=== PATIENT | female | born 1935 | race Caucasian/White ===

== ENCOUNTER 2021-11-10 13:21 | Inpatient (IN) ==
--- NOTE | 2021-11-10 13:54 | XRay Report ---
CLINICAL INFORMATION: Dyspnea COMPARISON: 08/31/2018 TECHNIQUE: PA and Lateral views FINDINGS: Moderate cardiomegaly has increased. Mediastinum and peripheral pulmonary vessels are normal. Moderate patchy infiltrates have developed in the right mid and lower lung with smaller patchy infiltrate in the left midlung. No effusions. IMPRESSION: Moderate patchy infiltrates in the right mid and lower lung. Small patchy infiltrate left midlung. Moderate cardiomegaly Interpreted and Authenticated by: Yunior Charles 11/10/21
[2021-11-10 14:01] LABS: POC Blood Urea Nitrogen 41 mg/dL (6-20); POC CO2 27 mmol/L (22-30); POC Calcium, Ionized 1.14 mmEq/L (1.16-1.32); POC Chloride 98 mEq/L (96-108); POC Creatinine 2.1 mg/dL (0.6-1.2); POC Glucose, Random 182 mg/dL (70-105); POC Hematocrit 36 % (36-48); POC Potassium 4.4 mEql/L (3.3-5.1); POC Sodium 135 mEq/L (133-145)
[2021-11-10 14:26] LABS: Basophils # (Auto) 0.02 K/mcL (0.00-0.30); Basophils % (Auto) 0.2 % (0.0-2.0); Eosinophils % (Auto) 2.2 % (0.0-7.0); Hematocrit 35.8 % (34.1-44.9); Hemoglobin 11.6 g/dL (11.2-15.7); Lymphocytes % (Auto) 8.8 % (15.5-49.0); Mean Cell Volume 91.6 fL (80.0-100.0); Mean Corpuscular HGB Conc 32.4 g/dL (31.0-36.0); Mean Platelet Volume 9.2 fL (7.4-10.4); Monocytes % (Auto) 8.8 % (1.0-12.0); Platelet Count 387 K/mcL (140-440); RBC 3.91 M/mcL (3.59-5.38); Red Cell Distribution Width 12.5 % (11.5-14.5); WBC 9.1 K/mcL (4.5-11.0)
--- NOTE | 2021-11-10 16:15 | Emergency Department Note ---
HPI General Chief complaint: Weakness Stated complaint: shortness of breath, weakness, anxious Time Seen by Provider: 11/10/21 13:26 Source: family Mode of arrival: ambulatory Limitations: no limitations History of Present Illness HPI Narrative: This is an 86-year-old female patient with history of CKD stage IV, atrial fibrillation on chronic Eliquis therapies, congestive heart failure, type 2 diabetes, hypothyroidism, and COPD with nocturnal oxygen dependence who presents with weakness and hypoxia. The patient is a [place]ian-speaking only elderly female who is here visiting her daughter from [place]. She has been in the area for about 1 month. She was previously on prednisone for a acute gout flare, and developed fairly severe diarrhea that is now resolving. Her appetite was good up until her prednisone taper was stopped. Now she endorses poor oral intake and generalized weakness. She does not feel motivated to get up and walk, and gets short of breath with limited ambulation. She denies chest pain. Has no history of coronary artery disease. Her congestive heart failure is presumably from untreated atrial fibrillation. She denies chest pain. She does endorse a cough. Denies fevers, chills, or sweats. Denies abdominal pain. Denies dysuria or hematuria, but does note that her urine smelled a little foul the other day. EKG shows atrial fibrillation with a rate of 100 bpm. There are no concerning ST deviation to suggest ischemia. She does have nonspecific ST changes in lead III with T wave inversions. QTC is 418 ms. Related Data Home Medications Medication Instructions Recorded Confirmed apixaban 2.5 mg tablet (Eliquis) 2.5 mg PO BID 11/10/21 11/10/21 atorvastatin 40 mg tablet 40 mg PO HS 11/10/21 11/10/21 carvedilol 25 mg tablet 25 mg PO BID 11/10/21 11/10/21 fluticasone furoate 200 1 inh PO QDAY 11/10/21 11/10/21 mcg-vilanterol 25 mcg/dose inhalation powder (Breo Ellipta) furosemide 40 mg tablet 40 mg PO BID 11/10/21 11/10/21 hydroxyzine HCl 25 mg tablet 0 mg PO 11/10/21 11/10/21 latanoprost 0.005 % eye drops 1 drp OPHTHALMIC (EYE) QDAY 11/10/21 11/10/21 levothyroxine 50 mcg tablet 50 mcg PO QDAY 11/10/21 11/10/21 omeprazole 20 mg capsule,delayed 20 mg PO QDAY 11/10/21 11/10/21 release spironolactone 25 mg tablet 25 mg PO 11/10/21 11/10/21 umeclidinium 62.5 mcg/actuation 1 inh PO QDAY 11/10/21 11/10/21 blister powder for inhalation (Incruse Ellipta) Allergies Allergy/AdvReac Type Severity Reaction Status Date / Time salmeterol Allergy Unknown Unknown Verified 11/10/21 13:26 Review of Systems ROS ROS Narrative: Narrative: All systems ED: reviewed and negative except as stated. PFSH Narrative Patient History Narrative: Narrative: Medical/Surgical/Family History All Active Problems Weakness (Acute) Social History Smoking Status: Never smoker Exam Narrative Narrative: General: AOx3, NAD, nontoxic appearing. Pleasant and conversant. HEENT: PERRL, EOMI, normocephalic. Moist mucous membranes. Normal facies and normal dentition. Chest: Symmetric, no pain to palpation Respiratory: Crackles in the bilateral lung bases. No respiratory distress. Unlabored breathing. O2 saturations dropped to 88% on room air with minimal activity. Heart: Irregular rate and rhythm, no murmurs/clicks/rubs. Abdomen: Non-tender, Non distended, normal bowel tones. No organomegaly. Extremities: Warm and well perfused. No edema. DP 2+ bilaterally. No venous stasis. Neuro: No focal deficits. Cranial nerves II-XII grossly normal. Skin: Warm dry, no rashes or lesions, no cyanosis. Psych: Normal mood and affect Heme/Lymph: No abnormal bruising General Limitations: no limitations Course Course Course Narrative: 86-year-old female presents with hypoxia and weakness. Reevaluation(s) Reevaluation #1: Basic labs chest x-ray, TSH, UA EKG and troponin Reevaluation #2: Patient's chest x-ray shows bilateral patchy infiltrates most notably in the right lung. Patient without leukocytosis or left shift. CMP with a creatinine of 2.1 (baseline is 1.8 from labs reviewed from her health care center). Reevaluation #3: Patient was ambulated on room air and saturations dropped to the mid 80s. Vital Signs Vital signs: Vital Signs Temperature 97.3 F 11/10/21 13:22 Pulse Rate 73 11/10/21 13:22 Respiratory Rate 20 11/10/21 13:22 Blood Pressure 118/69 11/10/21 13:22 Pulse Oximetry (%) 98 11/10/21 13:22 Temperature 97.3 F 11/10/21 13:22 Pulse Rate 91 H 11/10/21 19:46 Respiratory Rate 17 11/10/21 19:46 Blood Pressure 101/72 11/10/21 19:46 Pulse Oximetry (%) 97 11/10/21 19:46 MDM MDM Narrative Medical decision making narrative: Community-acquired pneumonia Hypoxia Patient was given IV ceftriaxone and azithromycin. Patient has new oxygen requirements with a pneumonia severity index score of 114, class IV, and meets criteria for inpatient admission. Patient is open to being admitted. They would like to stay within the area. I reached out to Dr. Bowers for admission and I am awaiting his call if there is a bed available. Patient was signed out to Dr. Bowers for admission. Lab Data Result diagrams: 11/10/21 13:53 Labs: Lab Results 11/10/21 11/10/21 11/10/21 Range/Units 13:53 13:53 13:53 WBC 9.1 (4.5-11.0) K/mcL RBC 3.91 (3.59-5.38) M/mcL Hgb 11.6 (11.2-15.7) g/dL Hct 35.8 (34.1-44.9) % POC Hct 36 (36-48) % MCV 91.6 (80.0-100.0) fL MCH 29.7 (26.0-34.0) pg MCHC 32.4 (31.0-36.0) g/dL RDW 12.5 (11.5-14.5) % Plt Count 387 (140-440) K/mcL MPV 9.2 (7.4-10.4) fL Neut % (Auto) 80.0 H (38.0-78.0) % Lymph % (Auto) 8.8 L (15.5-49.0) % [place] % (Auto) 8.8 (1.0-12.0) % Eos % (Auto) 2.2 (0.0-7.0) % Baso % (Auto) 0.2 (0.0-2.0) % Lymph # (Auto) 0.80 L (1.50-4.80) K/mcL [place] # (Auto) 0.80 (0.10-0.90) K/mcL Eos # (Auto) 0.20 (0.00-0.70) K/mcL Baso # (Auto) 0.02 (0.00-0.30) K/mcL Absolute Neutrophils 7.29 (1.80-8.00) K/mcL POC Sodium 135 (133-145) mEq/L POC Potassium 4.4 (3.3-5.1) mEql/L POC Chloride 98 (96-108) mEq/L POC Total CO2 27 (22-30) mmol/L POC BUN 41 H (6-20) mg/dL POC Creatinine 2.1 H (0.6-1.2) mg/dL POC Glucose 182 H (70-105) mg/dL POC WB Ioniz Calcium 1.14 L (1.16-1.32) mmEq/L NT-Pro-B Natriuret Pep 4689.0 H (<450.0) pg/mL Urine Color Urine Appearance (Clear) Urine pH (5.0-9.0) Ur Specific [place] (1.000-1.035) Urine Protein (Negative) mg/dL Urine Glucose (UA) (Negative) mg/dL Urine Ketones (Negative) mg/dL Urine Occult Blood (Negative) mg/dL Urine Nitrate (Negative) Urine Bilirubin (Negative) mg/dL Urine Urobilinogen mg/dL Ur Leukocyte Esterase (Negative) /uL Urine RBC (0-3) /hpf Urine WBC (0-4) /hpf Ur Squamous Epith Cells (0-4) /hpf Ur Transition Epith Cell (0-2) /hpf Urine Bacteria (0) /hpf Hyaline Casts (0-2) /lph Urine Mucus (None) /hpf Ur Culture Indicated? POC Troponin I 0.01 L (0.02-0.08) ng/mL 11/10/21 Range/Units 15:55 WBC (4.5-11.0) K/mcL RBC (3.59-5.38) M/mcL Hgb (11.2-15.7) g/dL Hct (34.1-44.9) % POC Hct (36-48) % MCV (80.0-100.0) fL MCH (26.0-34.0) pg MCHC (31.0-36.0) g/dL RDW (11.5-14.5) % Plt Count (140-440) K/mcL MPV (7.4-10.4) fL Neut % (Auto) (38.0-78.0) % Lymph % (Auto) (15.5-49.0) % [place] % (Auto) (1.0-12.0) % Eos % (Auto) (0.0-7.0) % Baso % (Auto) (0.0-2.0) % Lymph # (Auto) (1.50-4.80) K/mcL [place] # (Auto) (0.10-0.90) K/mcL Eos # (Auto) (0.00-0.70) K/mcL Baso # (Auto) (0.00-0.30) K/mcL Absolute Neutrophils (1.80-8.00) K/mcL POC Sodium (133-145) mEq/L POC Potassium (3.3-5.1) mEql/L POC Chloride (96-108) mEq/L POC Total CO2 (22-30) mmol/L POC BUN (6-20) mg/dL POC Creatinine (0.6-1.2) mg/dL POC Glucose (70-105) mg/dL POC WB Ioniz Calcium (1.16-1.32) mmEq/L NT-Pro-B Natriuret Pep (<450.0) pg/mL Urine Color Yellow Urine Appearance Hazy A (Clear) Urine pH 5.0 (5.0-9.0) Ur Specific [place] 1.009 (1.000-1.035) Urine Protein Negative (Negative) mg/dL Urine Glucose (UA) Negative (Negative) mg/dL Urine Ketones Negative (Negative) mg/dL Urine Occult Blood Negative (Negative) mg/dL Urine Nitrate Pos A (Negative) Urine Bilirubin Negative (Negative) mg/dL Urine Urobilinogen Negative mg/dL Ur Leukocyte Esterase Negative (Negative) /uL Urine RBC < 1 (0-3) /hpf Urine WBC 5 H (0-4) /hpf Ur Squamous Epith Cells < 1 (0-4) /hpf Ur Transition Epith Cell < 1 (0-2) /hpf Urine Bacteria Few A (0) /hpf Hyaline Casts 5 H (0-2) /lph Urine Mucus Few A (None) /hpf Ur Culture Indicated? Yes POC Troponin I (0.02-0.08) ng/mL ED POC Tests ED POC Tests: NICOLE - Influenza A Negative NICOLE - Influenza B Negative NICOLE - SARS Antigen Negative Discharge Plan Patient/Caregiver Discharge Instructions Pt seen by EQUIPMENT SERVICE ASSOCIATE/PA only: Yes Patient Disposition: Xfer As Inpt ([facility]) Condition: Fair Follow up with: No,PCP [Primary Care Provider] - Prescriptions: No Action Eliquis 2.5 mg tablet 2.5 mg PO BID 0RF hydroxyzine HCl 25 mg tablet 0 mg PO 0RF carvedilol 25 mg tablet 25 mg PO BID 0RF spironolactone 25 mg tablet 25 mg PO 0RF levothyroxine 50 mcg tablet 50 mcg PO QDAY 0RF atorvastatin 40 mg tablet 40 mg PO HS 0RF Incruse Ellipta 62.5 mcg/actuation blister with device 1 inh PO QDAY 0RF latanoprost 0.005 % drops 1 drp ophthalmic (eye) QDAY 0RF furosemide 40 mg tablet 40 mg PO BID 0RF Breo Ellipta 200-25 mcg/dose blister with device 1 inh PO QDAY 0RF omeprazole 20 mg capsule,delayed release(DR/EC) 20 mg PO QDAY 0RF
[2021-11-10] MEDS ORDERED: AZITHROMYCIN 500 MG in DEXTROSE 5% IN WATER 250 ML IV ONE (16:48)
[2021-11-10] MEDS ORDERED: cefTRIAXone 1 GM VIAL IV ONE (16:48)
[2021-11-10 17:13] LABS: Appearance,Urine HAZY (Clear); Bacteria,Urine FEW /hpf (0); Bilirubin,Urine Negative (Negative); Color,Urine YELLOW; Culture Indicated,Urine Yes; Glucose,Urine (UA) Negative (Negative); Ketones,Urine Negative (Negative); Leukocyte Esterase,Urine Negative /uL (Negative); Mucus,Urine FEW /hpf; Nitrate,Urine POS (Negative); Protein,Urine Negative (Negative); Specific Gravity,Urine 1.009 (1.000-1.035); Urine Blood Negative (Negative); Urine Hyaline Cast 5 /lph (0-2); Urine RBC < 1 /hpf (0-3); Urine Squamous Epithelial Cell < 1 /hpf (0-4); Urine Transitional Epi Cells < 1 /hpf (0-2); Urine WBC 5 /hpf (0-4); Urobilinogen,Urine Negative
--- NOTE | 2021-11-10 19:47 | Internal Med History&Physical ---
HPI History of Present Illness Patient information: Note initiated : 11/10/21 at 7:40 pm Service Date, if different from initiated Date: [] Patient: Kathie Prince 86 y/o F admitted on for shortness of breath, weakness, anxious. Chief Complaint: [] History of present illness: Ms. Prince is a 86 year old female with a history of atrial fibrillation on Eliquis, chronic kidney disease stage IV, congestive heart failure, type 2 diabetes mellitus, hypothyroidism, COPD with nocturnal hypoxia who presented to the emergency department for shortness of breath and generalized weakness. The emergency department, the patient was felt to have a pneumonia based on bilateral infiltrates noted on chest x-ray. The patient had a new oxygen requirement of about 2 L/min. The patient did not have any leukocytosis or fevers, renal function panel shows a creatinine of 2.1. The patient's baseline renal function is chronic kidney disease stage IV. Patient was started on ceftriaxone and azithromycin. Hospital medicine was consulted for admission. Review of systems Constitutional: no fever, fatigue, or weight loss Eyes: no vision changes or pain Cardiovascular: no chest pain, no palpitations Respiratory: no cough or dyspnea Gastrointestinal: no abdominal pain, no nausea, vomiting, or diarrhea Genitourinary: no dysuria or difficulty voiding Musculoskeletal: no arthralgia or myalgia Integumentary: no skin lesion or wound Neurological: no focal weakness or numbness Psychiatric: no anxiety or depression Physical exam Head: Atraumatic, normal inspection. Eyes: normal appearance, no scleral icterus. Neck: full ROM Respiratory: no respiratory distress. Cardiovascular: normal rate and rhythm, S1, S2. GI/Abdominal: soft, nontender, no guarding. Extremities: full range of motion, nontender. Neurological: CN II-XII intact, intact motor, intact sensation. Psychiatric: normal mood. Skin: warm, normal color PFSH PFSH All Active Problems Weakness (Acute) MEDS/ALLERGIES Home Medications and Allergies Home Medications Medication Instructions Recorded Confirmed Type apixaban 2.5 mg tablet (Eliquis) 2.5 mg PO BID 11/10/21 11/10/21 History atorvastatin 40 mg tablet 40 mg PO HS 11/10/21 11/10/21 History carvedilol 25 mg tablet 25 mg PO BID 11/10/21 11/10/21 History fluticasone furoate 200 1 inh PO QDAY 11/10/21 11/10/21 History mcg-vilanterol 25 mcg/dose inhalation powder (Breo Ellipta) furosemide 40 mg tablet 40 mg PO BID 11/10/21 11/10/21 History hydroxyzine HCl 25 mg tablet 0 mg PO 11/10/21 11/10/21 History latanoprost 0.005 % eye drops 1 drp OPHTHALMIC (EYE) QDAY 11/10/21 11/10/21 History levothyroxine 50 mcg tablet 50 mcg PO QDAY 11/10/21 11/10/21 History omeprazole 20 mg capsule,delayed 20 mg PO QDAY 11/10/21 11/10/21 History release spironolactone 25 mg tablet 25 mg PO 11/10/21 11/10/21 History umeclidinium 62.5 mcg/actuation 1 inh PO QDAY 11/10/21 11/10/21 History blister powder for inhalation (Incruse Ellipta) Allergies Allergy/AdvReac Type Severity Reaction Status Date / Time salmeterol Allergy Unknown Unknown Verified 11/10/21 13:26 EXAM Constitutional Vitals: Temp Pulse Resp BP Pulse Ox 97.3 F 95 H 20 109/89 98 11/10/21 13:22 11/10/21 19:15 11/10/21 19:15 11/10/21 19:15 11/10/21 19:15 DATA Data Completed and Pending Labs: Labs from last 24 hours 11/10/21 11/10/21 11/10/21 15:55 13:53 13:53 WBC RBC Hgb Hct POC Hct MCV MCH MCHC RDW Plt Count MPV Neut % (Auto) Lymph % (Auto) [place] % (Auto) Eos % (Auto) Baso % (Auto) Lymph # (Auto) [place] # (Auto) Eos # (Auto) Baso # (Auto) Absolute Neutrophils POC Sodium POC Potassium POC Chloride POC Total CO2 POC BUN POC Creatinine POC Glucose POC WB Ioniz Calcium NT-Pro-B Natriuret Pep 4689.0 H TSH Pending Urine Color Yellow Urine Appearance Hazy A Urine pH 5.0 Ur Specific [place] 1.009 Urine Protein Negative Urine Glucose (UA) Negative Urine Ketones Negative Urine Occult Blood Negative Urine Nitrate Pos A Urine Bilirubin Negative Urine Urobilinogen Negative Ur Leukocyte Esterase Negative Urine RBC < 1 Urine WBC 5 H Ur Squamous Epith Cells < 1 Ur Transition Epith Cell < 1 Urine Bacteria Few A Hyaline Casts 5 H Urine Mucus Few A Ur Culture Indicated? Yes POC Troponin I 11/10/21 11/10/21 13:53 13:53 WBC 9.1 RBC 3.91 Hgb 11.6 Hct 35.8 POC Hct 36 MCV 91.6 MCH 29.7 MCHC 32.4 RDW 12.5 Plt Count 387 MPV 9.2 Neut % (Auto) 80.0 H Lymph % (Auto) 8.8 L [place] % (Auto) 8.8 Eos % (Auto) 2.2 Baso % (Auto) 0.2 Lymph # (Auto) 0.80 L [place] # (Auto) 0.80 Eos # (Auto) 0.20 Baso # (Auto) 0.02 Absolute Neutrophils 7.29 POC Sodium 135 POC Potassium 4.4 POC Chloride 98 POC Total CO2 27 POC BUN 41 H POC Creatinine 2.1 H POC Glucose 182 H POC WB Ioniz Calcium 1.14 L NT-Pro-B Natriuret Pep TSH Urine Color Urine Appearance Urine pH Ur Specific [place] Urine Protein Urine Glucose (UA) Urine Ketones Urine Occult Blood Urine Nitrate Urine Bilirubin Urine Urobilinogen Ur Leukocyte Esterase Urine RBC Urine WBC Ur Squamous Epith Cells Ur Transition Epith Cell Urine Bacteria Hyaline Casts Urine Mucus Ur Culture Indicated? POC Troponin I 0.01 L A/P Narrative A/P Narrative: Assessment: 86 year old female with a history of atrial fibrillation on Eliquis, chronic kidney disease stage IV, congestive heart failure, type 2 diabetes mellitus, hypothyroidism, COPD with nocturnal hypoxia who presented to the emergency department for shortness of breath and generalized weakness. In the emergency department, the patient had a new oxygen requirement of about 2 L/min, chest x-ray showed bilateral infiltrates. #Probable community-acquired pneumonia #Bilateral pulmonary infiltrates #Hypoxia, possibly chronic #Possible UTI #Type 2 diabetes mellitus #COPD w/ nocturnal hypoxia on 2 L/min #Chronic kidney disease stage IV #Congestive heart failure #Atrial fibrillation on low-dose Eliquis Plan -Ceftriaxone and azithromycin. -Oxygen supplementation. -Follow blood and urine cultures. -Procalcitonin. -CT chest without contrast. -Duonebs prn. -Correction Humalog SSI-low. -Home medication reconciliation, resume essential meds. -PT consult. -DVT prophylaxis: Heparin SQ -CODE STATUS: DNR/DNI -Disposition:Home when stable. Time Spent With Patient Time: Total time spent is greater than 50% in coordination of care (as documented) at patient's floor/unit and/or counseling patient:
[2021-11-10] MEDS ORDERED: ACETAMINOPHEN 325 MG TABLET PO PRN (21:29)
[2021-11-10] MEDS ORDERED: DEXTROSE 50% 50 ML VIAL IV PRN (21:29)
[2021-11-10] MEDS ORDERED: ONDANSETRON 4 MG/2 ML VIAL IV PRN (21:29)
[2021-11-10] MEDS ORDERED: IPRATROPIUM/ALBUTEROL 3 ML AMPUL.NEB NEB PRN (21:29)
[2021-11-10] MEDS ORDERED: DEXTROSE 31 GM ORAL.SUSP PO PRN (21:29)
[2021-11-10] MEDS ORDERED: SENNOSIDES 1 TABLET PO SCH (21:29)
[2021-11-10] MEDS: INSULIN LISPRO 1 UNIT/0.01 ML UNIT SQ SCH (22:01)
[2021-11-10] MEDS: 0.9 % SODIUM CHLORIDE 10 ML SYRINGE IV SCH (22:02)
[2021-11-10] MEDS: DOCUSATE SODIUM 100 MG CAPSULE PO SCH (22:14)
--- NOTE | 2021-11-11 04:39 | Cat Scan Report ---
CLINICAL INFORMATION: Dyspnea and infiltrates COMPARISON: Chest x-ray 11/10/2021 TECHNIQUE: 0.625 mm axial slices were obtained from the lung apices through the bases without intravenous contrast. 2.5 mm Sagittal, coronal and axial reformatted images were processed and reviewed at bone, lung and soft tissue windows. 7 mm axial MIP images were also reconstructed to optimize pulmonary nodule detection.The exam was performed using radiation dose optimization techniques including, but not limited to, automated exposure control, adjustment of the mA and/or kV according to patient size and use of iterative reconstruction technique. FINDINGS: Pulmonary parenchymal windows show complete atelectasis of the lateral segment of the right middle lobe and partial cicitration atelectasis in the distal lingula. Moderate, yet vague, patchy groundglass airspace disease with mosaic perfusion pattern is seen throughout both upper right middle and both lower lobes with prominence in the upper lobes. Marked tubular bronchiectasis in the superior segmental right lower lobe bronchi noted. A 6 mm well-circumscribed solid nodule in the supradiaphragmatic anterior basilar segment right lower lobe on image 80 is almost certainly a granuloma. There are no effusions Mediastinal windows show moderate cardiomegaly. There is heavy calcific plaque in the LAD and also scattered within the circumflex and right coronary arteries. The noncontrast thoracic aorta and pulmonary arteries are normal in diameter. 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 There is no adenopathy in the mediastinal, hilar or axillary regions. The esophagus is grossly normal. Bone windows show no significant osseous abnormality. Soft tissues of the chest wall normal. Images of the superior abdomen show scattered low-attenuation lesions within the spleen which are likely cysts or benign hemangiomas. IMPRESSION: 1. Small vague regions of groundglass airspace disease scattered throughout both upper, both lower and right middle lobes. This is nonspecific most likely representing fibrosis from prior infection. An acute process as infection or inflammation is also possible. Suggest follow-up plain radiographs 2. Marked tubular bronchiectasis in the superior segment right lower lobe. This would predispose to future infection. 3. Complete atelectasis lateral segment right middle lobe. Cicitration atelectasis distal lingula. 4. Aberrant right subclavian artery extending through the retroesophageal region. This is a congenital variant. 5. Moderate cardiomegaly with heavy calcific plaque in the LAD coronary artery Interpreted and Authenticated by: Yunior Charles 11/11/21
[2021-11-11] MEDS: 0.9 % SODIUM CHLORIDE 10 ML SYRINGE IV SCH ×2 (05:42→14:40)
[2021-11-11 06:26] LABS: Hematocrit 33.2 % (34.1-44.9); Hemoglobin 10.3 g/dL (11.2-15.7); Mean Cell Volume 92.5 fL (80.0-100.0); Platelet Count 378 K/mcL (140-440); RBC 3.59 M/mcL (3.59-5.38); Red Cell Distribution Width 12.4 % (11.5-14.5); WBC 8.5 K/mcL (4.5-11.0)
[2021-11-11 06:53] LABS: ALT/SGPT 8 U/L (<40); AST/SGOT 12 U/L (<32); Albumin 2.7 gm/dL (3.2-5.2); Albumin/Globulin Ratio 0.6 (1.0-2.3); Alkaline Phosphatase 102 U/L (39-117); Bilirubin,Direct < 0.2 mg/dL (0-0.3); Bilirubin,Total 0.3 mg/dL (0.1-1.0); Blood Urea Nitrogen 28 mg/dL (8-23); Calcium 8.9 mg/dL (8.6-10.4); Carbon Dioxide 25 mmol/L (22-30); Chloride 96 mmol/L (96-108); Globulin 4.2 gm/dL (2.2-3.7); Glomerular Filtration Rate 25; Glucose 94 mg/dL (70-105); Lactate Dehydrogenase 174 U/L (135-225); Triglycerides 135 mg/dL (<150); Uric Acid 10.2 mg/dL (2.5-8.0)
[2021-11-11] MEDS: INSULIN LISPRO 1 UNIT/0.01 ML UNIT SQ SCH ×3 (07:09→16:32)
[2021-11-11 08:29] LABS: Band Neutrophils % 1 % (0-10); Eosinophils % (Manual) 9 % (0-7); Hypochromasia FEW (None Seen); Lymphocytes % 15 % (15-49); Monocytes % (Manual) 8 % (1-12); Ovalocytes FEW (None Seen); Platelet Estimate NORMAL (Normal); RBC Morphology ABNORMAL (Normal); Segmented Neutrophils % 67 % (38-78)
[2021-11-11] MEDS: DOCUSATE SODIUM 100 MG CAPSULE PO SCH (08:40)
[2021-11-11] MEDS ORDERED: cefTRIAXone 1 GM VIAL IV SCH (09:00)
[2021-11-11] MEDS ORDERED: AZITHROMYCIN 500 MG in DEXTROSE 5% IN WATER 250 ML IV SCH (10:00)
[2021-11-11] MEDS ORDERED: CALCIUM CARBONATE 500 MG TAB.CHEW CHEWED PRN (11:30)
[2021-11-11] MEDS ORDERED: FUROSEMIDE 40 MG TABLET PO SCH (16:00)
[2021-11-11] MEDS ORDERED: cefTRIAXone 1 GM in DEXTROSE 5% IN WATER 50 ML IV SCH (17:00)
--- NOTE | 2021-11-11 17:08 | Discharge Summary ---
Discharge Provider Provider Patient information: Note initiated : 11/11/21 at 5:04 pm Service Date, if different from initiated Date: [] Patient: Kathie Prince 86 y/o F admitted on 11/10/21 for shortness of breath, weakness, anxious. Chief Complaint: [] Date of admission: 11/10/21 21:24 Discharge date: 11/11/21 Primary care physician: PCP No Consults: 11/10/21 Consult to Physician [CONS] Stat Comment: Consulting Provider: Gato Bowers Reason For Exam: Physician to Consult Discharge Meds Discharge Medications Home Medications apixaban 2.5 mg tablet (Eliquis) 2.5 mg PO BID 11/10/21 [History Confirmed 04/26 Last Taken Unknown] atorvastatin 40 mg tablet 40 mg PO HS 11/10/21 [History Confirmed 11/10/21 Last Taken Unknown] carvedilol 25 mg tablet 25 mg PO BID 11/10/21 [History Confirmed 11/10/21 Last T aken Unknown] fluticasone furoate 200 mcg-vilanterol 25 mcg/dose inhalation powder (Breo Ellipta) 1 inh PO QDAY 11/10/21 [History Confirmed 11/10/21 Last Taken Unknown] furosemide 40 mg tablet 40 mg PO BID 11/10/21 [History Confirmed 11/10/21 Last Taken Unknown] hydroxyzine HCl 25 mg tablet 0 mg PO 11/10/21 [History Confirmed 11/10/21 Last Taken Unknown] latanoprost 0.005 % eye drops 1 drp OPHTHALMIC (EYE) QDAY 11/10/21 [History Confirmed 11/10/21 Last Taken Unknown] levothyroxine 50 mcg tablet 50 mcg PO QDAY 11/10/21 [History Confirmed 11/10/21 Last Taken Unknown] omeprazole 20 mg capsule,delayed release 20 mg PO QDAY 11/10/21 [History Confirmed 11/10/21 Last Taken Unknown] spironolactone 25 mg tablet 25 mg PO 11/10/21 [History Confirmed 11/10/21 Last Taken Unknown] umeclidinium 62.5 mcg/actuation blister powder for inhalation (Incruse Ellipta) 1 inh PO QDAY 11/10/21 [History Confirmed 11/10/21 Last Taken Unknown] azithromycin 250 mg tablet 250 mg PO QDAY 3 Days #3 tab 11/11/21 [Rx Last Taken Unknown] cefuroxime axetil 250 mg tablet 250 mg PO BID 3 Days #6 tab 11/11/21 [Rx Last Taken Unknown] COURSE Hospital Course Hospital course: Ms. Prince is a 86 year old female with a history of atrial fibrillation on Eliquis, chronic kidney disease stage IV, congestive heart failure, type 2 diabetes mellitus, hypothyroidism, COPD with nocturnal hypoxia who presented to the emergency department for shortness of breath and generalized weakness. The emergency department, the patient was felt to have a pneumonia based on bilateral infiltrates noted on chest x-ray. The patient had a new oxygen requirement of about 2 L/min. The patient did not have any leukocytosis or fevers, renal function panel shows a creatinine of 2.1. The patient's baseline renal function is chronic kidney disease stage IV. Patient was started on ceftriaxone and azithromycin. Hospital medicine was consulted for admission. 11/11 Feels better, CT chest showed small vague regions of groundglass airspace disease scattered throughout both upper both lower and right middle lobes, possibly lung fibrosis secondary to recent infection versus acute infection or inflammation. Urine culture grew gram-negative bacilli. [place] PCR was negative. Discussed disposition with the patient, she wants to go home with family. Discharged home with family, complete 5 days of antibiotics for possible pneumonia as well as probable urinary tract infection. The patient already has oxygen at home, normally uses oxygen at nighttime. Encouraged the patient to continue to wear oxygen during the daytime and check her oxygen saturation. The patient is visiting family in the area, she is from [place]. She should follow-up with her PCP and possibly pulmonology when she gets back to [place]. Physical exam Head: Atraumatic, normal inspection. Eyes: normal appearance, no scleral icterus. Neck: full ROM Respiratory: no respiratory distress. Cardiovascular: normal rate and rhythm, S1, S2. GI/Abdominal: soft, nontender, no guarding. Extremities: full range of motion, nontender. Neurological: CN II-XII intact, intact motor, intact sensation. Psychiatric: normal mood. Skin: warm, normal color Discharge diagnosis: Community-acquired pneumonia Secondary discharge diagnosis: Acute cystitis Time Spent with Patient Time attestation: Total time spent providing and/or coordinating discharge services: EXAM Constitutional Vitals: Temp Pulse Resp BP Pulse Ox 98.8 F 95 H 20 98/60 94 11/11/21 16:20 11/11/21 16:20 11/11/21 16:20 11/11/21 16:53 11/11/21 16:20 Discharge Data Data Completed and Pending Labs on day of discharge: Labs from last 24 hours 11/11/21 11/11/21 11/10/21 05:27 05:27 20:00 WBC 8.5 RBC 3.59 Hgb 10.3 L Hct 33.2 L MCV 92.5 MCH 28.7 MCHC 31.0 RDW 12.4 Plt Count 378 MPV 9.0 Seg Neutrophils % 67 Band Neutrophils % 1 Lymphocytes % 15 Monocytes % (Manual) 8 Eosinophils % (Manual) 9 H Platelet Estimate Normal RBC Morphology Abnormal A Hypochromasia Few A Ovalocytes Few A Sodium 133 Potassium 4.0 Chloride 96 Carbon Dioxide 25 Anion Gap 12.0 BUN 28 H Creatinine 1.8 H GFR Calculation 25 Glucose 94 Uric Acid 10.2 H Calcium 8.9 Phosphorus 3.0 Magnesium 1.7 Total Bilirubin 0.3 Direct Bilirubin < 0.2 GGT 36 AST 12 ALT 8 Alkaline Phosphatase 102 Lactate Dehydrogenase 174 Total Protein 6.9 Albumin 2.7 L Globulin 4.2 H Albumin/Globulin Ratio 0.6 L Triglycerides 135 Procalcitonin 0.26 H TSH Urine Color Urine Appearance Urine pH Ur Specific Anton[place] Urine Protein Urine Glucose (UA) Urine Ketones Urine Occult Blood Urine Nitrate Urine Bilirubin Urine Urobilinogen Ur Leukocyte Esterase Urine RBC Urine WBC Ur Squamous Epith Cells Ur Transition Epith Cell Urine Bacteria Hyaline Casts Urine Mucus Ur Culture Indicated? 11/10/21 11/10/21 15:55 13:53 WBC RBC Hgb Hct MCV MCH MCHC RDW Plt Count MPV Seg Neutrophils % Band Neutrophils % Lymphocytes % Monocytes % (Manual) Eosinophils % (Manual) Platelet Estimate RBC Morphology Hypochromasia Ovalocytes Sodium Potassium Chloride Carbon Dioxide Anion Gap BUN Creatinine GFR Calculation Glucose Uric Acid Calcium Phosphorus Magnesium Total Bilirubin Direct Bilirubin GGT AST ALT Alkaline Phosphatase Lactate Dehydrogenase Total Protein Albumin Globulin Albumin/Globulin Ratio Triglycerides Procalcitonin TSH 0.70 Urine Color Yellow Urine Appearance Hazy A Urine pH 5.0 Ur Specific Antonito 1.009 Urine Protein Negative Urine Glucose (UA) Negative Urine Ketones Negative Urine Occult Blood Negative Urine Nitrate Pos A Urine Bilirubin Negative Urine Urobilinogen Negative Ur Leukocyte Esterase Negative Urine RBC < 1 Urine WBC 5 H Ur Squamous Epith Cells < 1 Ur Transition Epith Cell < 1 Urine Bacteria Few A Hyaline Casts 5 H Urine Mucus Few A Ur Culture Indicated? Yes Preliminary micro results at discharge 11/10/21 15:55 Urine Culture - Preliminary Urine - Random Gram negative bacillus Discharge Plan Patient/Caregiver Discharge Instructions Activity: increase activity as tolerated Diet: Low Sodium (2gm) and Cardiac Prescriptions: New cefuroxime axetil 250 mg tablet 250 mg PO BID 3 Days Qty: 6 0RF azithromycin 250 mg tablet 250 mg PO QDAY 3 Days Qty: 3 0RF Continued Eliquis 2.5 mg tablet 2.5 mg PO BID 0RF hydroxyzine HCl 25 mg tablet 0 mg PO 0RF carvedilol 25 mg tablet 25 mg PO BID 0RF spironolactone 25 mg tablet 25 mg PO 0RF levothyroxine 50 mcg tablet 50 mcg PO QDAY 0RF atorvastatin 40 mg tablet 40 mg PO HS 0RF Incruse Ellipta 62.5 mcg/actuation blister with device 1 inh PO QDAY 0RF latanoprost 0.005 % drops 1 drp ophthalmic (eye) QDAY 0RF furosemide 40 mg tablet 40 mg PO BID 0RF Breo Ellipta 200-25 mcg/dose blister with device 1 inh PO QDAY 0RF omeprazole 20 mg capsule,delayed release(DR/EC) 20 mg PO QDAY 0RF Follow Up Plan Follow up with: No,PCP [Primary Care Provider] - Patient Disposition: Home, Self-Care Prognosis: Fair Overall status at discharge: patient is progressing back to baseline Discharge Orders: Discharge Order (Routine); Ordered 11/11/21 Ordered By: Gato BAH VTE Deep Vein Thrombosis/Pulmonary Embolism Present on Admission: No
[2021-11-11] MEDS ORDERED: ATORVASTATIN 40 MG TABLET PO SCH (21:00)
[2021-11-11] MEDS ORDERED: APIXABAN 5 MG TABLET PO SCH (21:00)
--- NOTE | 2021-11-12 07:07 | EKG ---
[facility] Test Date: 2021-11-10 Pat Name: Kathie Prince Department: ED Room: Gender: Female Pinion [employer]isher: : 1935 Requested By: Yuri Felix Order Number: [id number] Reading MD: Jose De Jesus Auguste Measurements Intervals [place] Rate: 100 P: SC: QRS: 23 QRSD: 94 T: -16 QT: 324 QTc: 418 Interpretive Statements Atrial fibrillation Low voltage, extremity leads Electronically Signed On 11-12-2021 7:07:07 PST by Jose De Jesus Auguste /[id number]
[2021-11-12] MEDS ORDERED: OMEPRAZOLE 20 MG CAPSULE PO SCH (07:30)
[2021-11-12] MEDS ORDERED: LEVOTHYROXINE 50 MCG TABLET PO SCH (07:30)
[2021-11-12] MEDS ORDERED: VILANTEROL INH SCH (09:00)
[2021-11-12] MEDS ORDERED: FLUTICASONE FUROATE 200 MCG INH SCH (09:00)
== END 2021-11-11 19:10 | disposition home or self-care (01) | DRG 194 ==
LOC: ED 13:21 → MEDSUR 21:24
PROVIDERS: ADMIT Internal Medicine; ATTEND Internal Medicine